=== PATIENT | female | born 1945 | race Caucasian/White ===

== ENCOUNTER 2020-06-22 09:03 | Emergency (ER) | payer MEDICARE, SELFPAY ==
[2020-06-22] VITALS (7 sets, daily range): BP systolic 168–199; BP diastolic 90–145; PULSE 80–123; RESP 16–20; TEMP 36.9; O2SAT 95–99; BMI 29.5
--- NOTE | 2020-06-22 09:39 | EKG12_ITS ---
Test Reason : PALP Blood Pressure : / mmHG Vent. Rate : 106 BPM Atrial Rate : 106 BPM P-R Int : 184 ms QRS Dur : 088 ms QT Int : 330 ms P-R-T Axes : 073 002 069 degrees QTc Int : 438 ms Sinus tachycardia with occasional Premature ventricular complexes Nonspecific ST abnormality Abnormal ECG Confirmed by BRENDON ABEBE, OSWALDO ([id number]), publication editor HARDIK NEAL ([id number]) on 06/26/2020 10:51:09 AM Referred By: RILEY Confirmed By:OSWALDO OLIVAS MD
--- NOTE | 2020-06-22 09:40 | ED.VIS.GEN ---
History of Present Illness Chief Complaint: Palpitations Informant: Patient Narrative: 74-year-old female presenting with palpitations. This is been ongoing since Wednesday. Patient denies any chest pain, shortness of breath. She states that she does not go to the doctor and does not have any medical diagnoses as of yet. She denies any cardiac or pulmonary history. She has been eating and drinking normally. She states she makes normal urine and stool. She states she has a lot of anxiety over her symptoms. Past Medical History - Allergies and Home Meds Allergies/Adverse Reactions: Allergies No Known Allergies Allergy (Verified 06/22/20 09:05) Primary Care Physician: Otto Ledesma MD [STAFF PHYSICIAN] - Prior records reviewed: Yes Past Medical History: None Surgical History: noncontributory Lives: Spouse/ Significant Other Smoking Status: Never smoker Alcohol: None Drugs: None Review of Systems General: Denies: Chills, Fever, Sweats Eyes: Denies: Visual changes - bilaterally, Diplopia ENT: Denies: Rhinorrhea, Sore throat Cardiovascular: Reports: Palpitations, Heart racing Respiratory: Denies: Dyspnea, Cough, Dyspnea on exertion Gastrointestinal: Denies: Abdominal pain, Nausea, Vomiting, Diarrhea, Melena, Hematochezia Genitourinary: Denies: Dysuria, Hematuria, Frequency Musculoskeletal: Denies: Back pain, Extremity Pain Skin: Denies: Rash, Wounds Neurological: Denies: Headache, Weakness, Numbness Psych: Denies: Depression, Anxiety, Suicidal thoughts, Suicidal ideations, -, - Physical Exam Vital Signs/Narrative: Vital Signs Temp Pulse Resp BP Pulse Ox 06/22/20 09:05 98.4 F 123 H 18 199/145 H 95 Inital Vital Signs reviewed: Yes General: Well nourished, No Acute Distress Head: Normocephalic, Atraumatic Eyes: Perrl, EOMI ENT: Moist mucous membranes, No rhinorrhea Cardiovascular: Regular rate, Regular rhythm Respiratory: No distress, CTA bilaterally Abdomen: Soft, Nontender, Nondistended Extremities: Nontender, No edema Skin: Normal color, No rash Neurological: Alert, Oriented x3, Cranial nerves II-XII grossly intact Psychological: Tearful - Anxiety, Agitated Diagnostic/Tx/Re-eval Clinical Impression(s) from Imaging Studies Chest X-Ray 06/22/20 09:44 IMPRESSION: No acute pulmonary process Electronically Signed: Omar Garcia MD at 10:05 EDT , Service support , Laboratory Data 06/22/20 06/22/20 09:34 09:34 WBC 5.5 RBC 5.44 H Hgb 15.5 H Hct 48.2 H MCV 88.6 MCH 28.5 MCHC 32.2 RDW Std Deviation 44.6 H RDW Coeff of Champ 13.8 Plt Count 190 MPV 11.2 Immature Gran % (Auto) 0.200 Neut % (Auto) 65.8 Lymph % (Auto) 26.6 [place] % (Auto) 4.7 Eos % (Auto) 2.5 Baso % (Auto) 0.2 Absolute Neuts (auto) 3.6 Absolute Lymphs (auto) 1.47 Nucleated RBC % 0 Sodium 140 Potassium 3.4 L Chloride 108 H Carbon Dioxide 26.0 Anion Gap 6 BUN 16 Creatinine 0.95 Estim Creat Clear Calc 57.88 Est GFR (MDRD) Af Amer 74 Est GFR (MDRD) Non-Af 61 BUN/Creatinine Ratio 16.8 Glucose 111 H Calcium 9.6 Troponin I < 0.015 - Medical Decision Making Patient with sharp right-sided chest pain since last evening. She declines analgesia. She had EKG performed on arrival which shows sinus tachycardia at 106 bpm with occasional PVC as interpreted by myself. Lab work was unremarkable with exception of a potassium of 3.4. I believe this can be treated as an outpatient with diet. Chest x-ray shows shows no acute cardiopulmonary process. Patient found to be significantly hypertensive with multiple checks during her stay. She was initially given Lopressor 20 mg IV and her blood pressure did respond slightly and then came up again. She was then given hydralazine 5 mg IV and did respond. She will be started on amlodipine 10 mg for home daily. States she wants to follow-up with her 's primary care physician. She is counseled to do so or make another appointment with another physician. I prescribed her with a 30-day supply of medication. Patient is discharged home in stable condition. Impression: 1. Palpitations 2. Hypertension ED Disposition - Plan for ED Patient: Disposition: Home or Assisted Living Instructions: ED Hypertension, New (Begin Treatment), ED Palpitations Prescriptions: Amlodipine [Norvasc] 10 mg PO DAILY #30 tab Prescription Printed Referrals: Otto Ledesma MD [STAFF PHYSICIAN] -
--- NOTE | 2020-06-22 09:44 | RAD_ITS ---
STUDY: X-RAY CHEST REASON FOR EXAM: Female, 74 years old. Palpitations TECHNIQUE: Single AP portable view of the chest. COMPARISON: None. FINDINGS: EKG leads overlie the chest The lungs are clear and expanded. There is no demonstrated pleural abnormality. Normal size heart. Normal mediastinum and lindsey. Normal visualized pulmonary arteries. Normal visualized aortic arch and descending thoracic aorta. There are diffuse degenerative changes of the visualized thoracic spine. Normal visualized ribs, clavicles, and shoulders. There is no demonstrated abnormality of the visualized soft tissue structures of the upper abdomen. RAD/Chest 1 View IMPRESSION: No acute pulmonary process Electronically Signed: Omar Garcia MD at 10:05 EDT , Service support ,
[2020-06-22 09:47] LABS: Absolute Lymphocyte Count 1.47 X10^3/uL (0.83-4.51); Absolute Neutrophil Count 3.6 X10^3/uL (2.0-7.7); Basophil# 0.01 X10^3/uL; Basophil% 0.2 % (0-1); Eosinophil# 0.14 X10^3/uL; Eosinophils% 2.5 % (0-5); Hematocrit 48.2 % (37-47); Hemoglobin 15.5 g/dL (12.0-15.0); Lymphocyte # 1.47 X10^3/ul (4.0); Lymphocyte % 26.6 % (19-41); Mean Corp Hgb Conc 32.2 g/dL (32-36); Mean Corpuscular Hgb 28.5 pg (27.0-32.0); Mean Corpuscular Volume 88.6 fL (81-99); Mean Platelet Vol. 11.2 fl (6.2-12.0); Monocyte# 0.26 X10^3/uL; Monocyte% 4.7 % (0-10); NRBC Flagged by Analyzer 0 % (0-5); Neutrophil # 3.63 X10^3/uL (2.7-7.7); Neutrophil % 65.8 % (47-70); Platelet Count 190 K/mm3 (150-450); RBC Distribution Width CV 13.8 % (11.6-14.6); RBC Distribution Width SD 44.6 fl (35.1-43.9); Red Blood Count 5.44 M/mm3 (4.2-5.4); White Blood Count 5.5 K/mm3 (4.4-11.0)
[2020-06-22 10:00] LABS: Anion Gap 6 (5-15); BUN 16 mg/dL (7-18); BUN/Creat Ratio 16.8 RATIO (10-20); Calcium,Total 9.6 mg/dL (8.5-10.1); Chloride 108 mmol/L (98-107); Creatinine, Serum 0.95 mg/dL (0.55-1.02); EST Glomerular Filtration Rate 61 mL/min (>60); Est Glom Filt Rate - Afr Amer 74 mL/min (>60); Estimated Creatinine Clearance 57.88 ml/min; Glucose 111 mg/dL (74-106); Potassium 3.4 mmol/L (3.5-5.1); Sodium Level 140 mmol/L (136-145)
[2020-06-22] MEDS: Labetalol (Prefilled) 20 MG/4 ML IV (10:37)
[2020-06-22] MEDS: hydrALAZINE 20 MG/ML Vial 5 MG IV (11:47)
== END 2020-06-22 12:39 | disposition home or self-care (01) ==
PROVIDERS: Emergency Provider Student in an Organized Health Care Education/Training Program; PCP Nurse Practitioner Family
DX: R00.2 Palpitations (principal); I10 Essential (primary) hypertension
CPT/HCPCS: 71045; 80048; 84484; 85025; 93005; 96374; 96375; 99285; J7030; A4216

== ENCOUNTER 2021-12-18 15:13 | Outpatient (CLI) | payer MEDICARE, SELFPAY ==
--- NOTE | 2021-12-18 | IMM_PTH ---
PATIENT: MALLIKA DALE LOC: [facility] U#:[id number] AGE/SX: 76/F ROOM: RE12/18/[address]: Dr. Waylon Fox DDS : 1945 BED: DIS: 12/18/2021 SPEC #: [id number] RECD: 12/22/21 10:32 STATUS: GILDA REQ #: [id number] HARRY: 12/18/21 00:[address]: Waylon Fox DEPT: IMMUNOHISTOCHEMISTRY RECD BY: Lina Khoury ENTERED: 12/22/21 10:34 SP TYPE: IMMUNO OTHR DR: Bryan Chowdhury, PUPPY TRAINER-C Tissues: Palate, NOS Procedures: CD138 (initial) KAPPA (add) LAMBDA (add) MART1 (add) S-100 (add) PHYSICIAN & INSTITUTION [address] [address] SPECIMEN INFORMATION: Tissue Source: Palate biopsy Clinical Info: Rule out melanoma Specimen Number: [id number] CPT code: 90706, 16002 x4 METHODOLOGY: Deparaffinized sections of prefer/formalin-fixed tissue or PAP/DQ stained slides are incubated with monoclonal/polyclonal antibodies/oligonucleotide probes. Localization is made via biotin free immunoperoxidase method. Appropriate controls are performed and reacted as expected. Results on target cell population are indicated in the following table: RESULTS: ANTIBODY / CLONE RESULT CD138 (B-A38) positive Calypso (polyclonal) positive Lambda (polyclonal) positive S-100 (4C4.9) negative MART-1 (A-103) negative These tests were developed and their performance characteristics determined by [facility]. They may not have been cleared or approved by the [place]. Food and Drug Administration. The FDA has determined that such clearance or approval is not necessary. The above immunohistochemical/dualISH markers are ordered and reviewed by the Pathologist. INTERPRETATION: Palate, biopsy: Negative for melanocytic lesion. See comment. SJ:danuta 12/23/2021 Comment: Inflammatory cell infiltrate predominantly consisting of plasma cells, polytypic in nature. Case has been reviewed in consultation with Dr. Link who concurs with the above diagnosis. IDC:[email or web address]
--- NOTE | 2021-12-18 | LES_PTH ---
PATIENT: MALLIKA DALE LOC: [facility] U#:[id number] AGE/SX: 76/F ROOM: RE12/18/[address]: Dr. Waylon Fox DDS : 1945 BED: DIS: 12/18/2021 SPEC #: [id number] RECD: 12/18/21 15:05 STATUS: GILDA KEYUR #: [id number] HARRY: 12/18/21 00:[address]: Waylon Fox DEPT: SURGICAL PATHOLOGY RECD BY: Roni Thurman ENTERED: 12/19/21 10:38 SP TYPE: Lesion OTHR DR: Bryan Chowdhury, MEDICAL TECH-C Tissues: Palate, NOS Procedures: Special Stain Group I Surgery Specimen Level IV GMS Stain (control) HEADER OPERATION: Palate biopsy PRE-OP DIAGNOSIS: Rule out melanoma TISSUE SUBMITTED: Palate biopsy MICROSCOPIC DIAGNOSIS Palate, biopsy: A piece of squamous mucosa with moderate chronic inflammation and minimal acute inflammation. Hyperkeratosis and acanthosis. Exogenous black pigment in subepithelial tissue. Negative for malignancy. See comment. DAKOTA:danuta 12/22/2021 COMMENT A melanocytic lesion is not seen. Special stain for fungi is negative for organisms; matched control is appropriate. Immunohistochemistry ([id number]) supports the above diagnosis. Chronic inflammatory infiltrate predominantly consists of plasma cells, polytypic in nature. Clinical correlation and appropriate follow-up are necessary. Case has been reviewed in consultation with Dr. Link who concurs with the above diagnosis. IDC:AM MICROSCOPIC DESCRIPTION Slides are reviewed. GROSS DESCRIPTION Received in fixative is one container labeled with the patient's name and designated palate. The specimen consists of a piece of slade mucosal tissue measuring 0.7 x 0.3 x 0.4 cm. The specimen is inked and submitted entirely in one cassette. / DAKOTA:danuta 12/19/2021 TC:3 CPT: 53068, 60102
== END 2021-12-18 23:59 | disposition home or self-care (01) ==
LOC: LABSPEC 15:15
PROVIDERS: PCP Nurse Practitioner Family; Visit Provider Dentist Oral and Maxillofacial Surgery
DX: L83 Acanthosis nigricans (principal)
CPT/HCPCS: 88305; 88312; 88341; 88342